=== PATIENT | male | born 1965 | race African-American/Black ===

== ENCOUNTER 2021-08-19 11:30 | Emergency (ER) | payer OTHER, SELFPAY | END 2021-08-19 12:21 | disposition home or self-care (01) | LOC: NAV ERS 11:30 | DX: L03.115 Cellulitis of right lower limb (principal); E78.5 Hyperlipidemia, unspecified; E78.00 Pure hypercholesterolemia, unspecified; I10 Essential (primary) hypertension; F17.210 Nicotine dependence, cigarettes, uncomplicated; Z79.899 Other long term (current) drug therapy ==